=== PATIENT | female | born 1980 | race Caucasian/White ===

== ENCOUNTER 2017-09-07 14:09 | Emergency (ER) | payer MEDICAID ==
[~2017-09-07] VITALS: Ht 154.9 cm; Wt 66.0 kg
[~2017-09-07 14:09] MED LIST: AMPH12.52 PO; CLIN-27 PO; CLIN150C2 PO; CLON-528 PO; HYDR1TAB PO; ZOL50T PO
[2017-09-07 16:00] LABS: URINE HCG NEGATIVE (NEG)
[2017-09-07] MEDS ORDERED: ketorolac tromethamine 15mg/ml inj. IM ONE (16:15)
[2017-09-07] MEDS ORDERED: acetaminophen 325mg tablet PO ONE (16:15)
[2017-09-07] MEDS ORDERED: cyclobenzaprine 10mg tablet PO ONE (16:15)
[2017-09-07] MEDS ORDERED: IBUP-1986 PO (16:25)
[2017-09-07] MEDS ORDERED: LIDO700A32 TOP (16:25)
[2017-09-07] MEDS ORDERED: CYCL-1 PO (16:25)
[2017-09-07] MEDS ORDERED: HYDROcodone/acetaminophen 5mg/325mg tablet PO ONE (16:40)
[2017-09-07 17:59] VITALS: BP 107/68
== END 2017-09-07 18:02 | disposition home or self-care (01) ==
LOC: ER 14:10
DX: M43.6 Torticollis (principal); J45.909 Unspecified asthma, uncomplicated; F17.200 Nicotine dependence, unspecified, uncomplicated; F15.90 Other stimulant use, unspecified, uncomplicated; Z98.890 Other specified postprocedural states; Z98.51 Tubal ligation status; Z60.2 Problems related to living alone; Z59.0 Homelessness; Z88.0 Allergy status to penicillin; Z79.2 Long term (current) use of antibiotics; Z79.899 Other long term (current) drug therapy; Z56.0 Unemployment, unspecified
CPT/HCPCS: 70360; 81025; 96372; 99285; J1885; 99284

== ENCOUNTER 2022-09-05 18:54 | Emergency (ER) | payer MEDICAID ==
[~2022-09-05] VITALS: Ht 156.2 cm; Wt 90.9 kg
[~2022-09-05 18:54] MED LIST changes: +CYCL-1 PO; +IBUP-1986 PO; +LIDO700A32 TOP; +SERT-153 PO; -ZOL50T PO
[2022-09-05 19:18] VITALS: BP 124/89
[2022-09-05 19:43] LABS: URINE HCG NEGATIVE (NEG)
[2022-09-05 20:01] LABS: CLARITY,URINE SLIGHTLY CLOUDY (Clear); COLOR,URINE YELLOW (Yellow); GLUCOSE, URINE NEGATIVE (Neg); KETONES,URINE NEGATIVE (Neg); LEUKOCYTE ESTERASE ,URINE NEGATIVE (Neg); NITRITES, URINE NEGATIVE (Neg); OCCULT BLOOD,URINE NEGATIVE (Neg); PROTEIN,URINE TRACE mg/dl (Neg)
[2022-09-05 20:04] LABS: UA COLLECTION TYPE CLN CATCH MIDSTREAM
[2022-09-05 20:34] LABS: BACTERIA,URINE FEW /HPF (Neg); MUCUS STRANDS MANY /LPF (Neg); RBC,URINE 0-2 /HPF (0-2); SQUAMOUS EPITHELIAL CELL,UR FEW /LPF (FEW); WBC,URINE 30-50 /HPF (0-4)
[2022-09-05 20:35] LABS: WBC CLUMPS,URINE FEW /HPF (NEGATIVE)
[2022-09-05] MEDS ORDERED: phenazopyridine 100mg tablet PO ONE (21:10)
== END 2022-09-05 22:16 | disposition home or self-care (01) ==
LOC: ER 18:54
DX: R30.0 Dysuria (principal); R35.0 Frequency of micturition; J45.909 Unspecified asthma, uncomplicated; F41.9 Anxiety disorder, unspecified; F31.9 Bipolar disorder, unspecified; F15.90 Other stimulant use, unspecified, uncomplicated; Z98.51 Tubal ligation status; Z59.00 Homelessness unspecified; Z56.0 Unemployment, unspecified; Z60.2 Problems related to living alone; Z98.890 Other specified postprocedural states; Z88.0 Allergy status to penicillin; Z88.8 Allergy status to other drugs, medicaments and biological substances; Z79.899 Other long term (current) drug therapy
CPT/HCPCS: 36415; 81001; 81025; 87077; 87088; 87186; 87491; 99283

== ENCOUNTER 2022-10-26 09:51 | Emergency (ER) | payer MEDICAID ==
[~2022-10-26] VITALS: Ht 157.5 cm; Wt 94.0 kg
[2022-10-26 10:01] VITALS: BP 129/95; PULSE 66; RESP 16; TEMP 97.9; O2SAT 100
[2022-10-26 10:55] LABS: BILIRUBIN,URINE NEGATIVE (Neg); CLARITY,URINE SLIGHTLY CLOUDY (Clear); COLOR,URINE YELLOW (Yellow); GLUCOSE, URINE NEGATIVE (Neg); KETONES,URINE NEGATIVE (Neg); LEUKOCYTE ESTERASE ,URINE NEGATIVE (Neg); NITRITES, URINE NEGATIVE (Neg); OCCULT BLOOD,URINE NEGATIVE (Neg); PH,URINE 5.5 (4.8-8.0); PROTEIN,URINE NEGATIVE (Neg); UROBILINOGEN,URINE 0.2 E.U/dL (0.2-1.0)
[2022-10-26 10:56] LABS: URINE HCG NEGATIVE (NEG)
[2022-10-26 10:57] LABS: UA COLLECTION TYPE VOIDED
[2022-10-26 11:15] LABS: MUCUS STRANDS FEW /LPF (Neg); SQUAMOUS EPITHELIAL CELL,UR FEW /LPF (FEW)
[2022-10-26 11:16] LABS: BACTERIA,URINE FEW /HPF (Neg); RBC,URINE 0-2 /HPF (0-2); WBC,URINE 0-4 /HPF (0-4)
== END 2022-10-26 14:20 | disposition home or self-care (01) ==
LOC: ER 09:51
DX: A53.9 Syphilis, unspecified (principal); J45.909 Unspecified asthma, uncomplicated; F31.9 Bipolar disorder, unspecified; F15.90 Other stimulant use, unspecified, uncomplicated; Z88.0 Allergy status to penicillin; Z88.8 Allergy status to other drugs, medicaments and biological substances; Z79.2 Long term (current) use of antibiotics; Z79.1 Long term (current) use of non-steroidal anti-inflammatories (NSAID); Z79.899 Other long term (current) drug therapy; Z98.890 Other specified postprocedural states; Z98.51 Tubal ligation status
CPT/HCPCS: 36415; 81001; 81025; 86592; 99283

== ENCOUNTER 2023-01-13 08:01 | Emergency (ER) | payer MEDICAID ==
[~2023-01-13] VITALS: Ht 154.9 cm; Wt 98.5 kg
[2023-01-13 08:34] LABS: URINE HCG NEGATIVE (NEG)
[2023-01-13 08:35] LABS: BILIRUBIN,URINE NEGATIVE (Neg); CLARITY,URINE CLOUDY (Clear); COLOR,URINE AMBER (Yellow); GLUCOSE, URINE NEGATIVE (Neg); KETONES,URINE NEGATIVE (Neg); LEUKOCYTE ESTERASE ,URINE NEGATIVE (Neg); NITRITES, URINE NEGATIVE (Neg); OCCULT BLOOD,URINE LARGE (Neg); PROTEIN,URINE TRACE mg/dl (Neg); UROBILINOGEN,URINE 0.2 E.U/dL (0.2-1.0)
[2023-01-13 08:40] LABS: UA COLLECTION TYPE CLN CATCH MIDSTREAM
[2023-01-13 08:41] LABS: RBC,URINE TNTC /HPF (0-2); SQUAMOUS EPITHELIAL CELL,UR MODERATE /LPF (FEW)
[2023-01-13 08:42] LABS: TRANSITIONAL EPI CELLS,URINE FEW /HPF
[2023-01-13 08:43] LABS: BACTERIA,URINE FEW /HPF (Neg); WBC,URINE 0-4 /HPF (0-4)
[2023-01-13] MEDS ORDERED: ondansetron 4mg rapidly disintigrating tab PO ONE (09:30)
[2023-01-13 10:19] LABS: BASOPHILS % (AUTO) 0.4 % (0-1); EOSINOPHILS # (AUTO) 0.2 X10'3 (0-0.9); EOSINOPHILS % (AUTO) 2.3 % (0-6); HEMATOCRIT 40.2 % (35.0-45.0); HEMOGLOBIN 13.5 g/dl (12.0-16.0); LYMPHOCYTES # (AUTO) 2.1 X10'3 (1.1-4.8); LYMPHOCYTES % (AUTO) 23.3 % (21-51); MEAN CORPUSCULAR HEMOGLOBIN 31.2 PG (27.0-31.0); MEAN CORPUSCULAR HGB CONC 33.5 g/dL (33.0-36.5); MEAN CORPUSCULAR VOLUME 93.3 FL (78-98); MONOCYTES # (AUTO) 0.5 X10'3 (0-0.9); MONOCYTES % (AUTO) 5.8 % (2-12); NEUTROPHILS # (AUTO) 6.2 X10'3 (1.8-7.7); NEUTROPHILS % (AUTO) 68.2 % (42-75); PLATELET COUNT 240 X10'3 (140-440); RED BLOOD COUNT 4.31 X10'6 (4.20-5.60); RED CELL DISTRIBUTION WIDTH 12.8 % (11.5-14.5); WHITE BLOOD COUNT 9.1 X10'3 (4.5-11.0)
[2023-01-13 10:38] LABS: ALANINE AMINOTRANSFERASE 20 U/L (12-78); ALBUMIN 3.2 G/DL (3.4-5.0); ALBUMIN/GLOBULIN RATIO 0.8 (1.1-1.5); ALKALINE PHOSPHATASE 71 IU/L (46-116); ANION GAP 10 (8-16); ASPARTATE AMINO TRANSFERASE 23 U/L (10-37); BILIRUBIN,TOTAL 0.4 MG/DL (0.1-1.0); BLOOD UREA NITROGEN 9 MG/DL (7-18); BUN/CREATININE RATIO 10.7 (10.0-20.0); CALCIUM 8.6 MG/DL (8.5-10.1); CHLORIDE 105 MMOL/L (99-107); CREATININE 0.84 MG/DL (0.40-0.90); GLUCOSE 113 MG/DL (70-104); LIPASE 36 U/L (16-77); POTASSIUM 3.5 MMOL/L (3.5-5.1); SODIUM 138 MMOL/L (135-145); THYROID STIMULATING HORMONE 2.38 ulU/ml (0.34-4.50); TOTAL CARBON DIOXIDE 23.2 MMOL/L (24-32); eCRCL 67 ML/MIN; eGFR 75 ML/MIN
[2023-01-13] MEDS ORDERED: ketorolac trometh. 30mg/ml inj. IM ONE (11:35)
[2023-01-13] MEDS ORDERED: IBUP-1984 PO (13:06)
[2023-01-13 13:24] VITALS: BP 107/65; PULSE 80; RESP 18; TEMP 98.3; O2SAT 97
== END 2023-01-13 13:31 | disposition home or self-care (01) ==
LOC: ER 08:01
DX: N92.0 Excessive and frequent menstruation with regular cycle (principal); R10.30 Lower abdominal pain, unspecified; J45.909 Unspecified asthma, uncomplicated; F15.90 Other stimulant use, unspecified, uncomplicated; Z56.0 Unemployment, unspecified; Z59.00 Homelessness unspecified; Z98.891 History of uterine scar from previous surgery; Z98.51 Tubal ligation status; Z88.0 Allergy status to penicillin; Z88.8 Allergy status to other drugs, medicaments and biological substances; Z79.2 Long term (current) use of antibiotics; Z79.899 Other long term (current) drug therapy
CPT/HCPCS: 36415; 76830; 76856; 80053; 81001; 81025; 83690; 84443; 85025; 93976; 96372; 99285; J1885

== ENCOUNTER 2023-02-19 21:03 | Emergency (ER) | payer MEDICAID ==
[~2023-02-19] VITALS: Ht 156.2 cm; Wt 99.0 kg
[2023-02-19 21:11] VITALS: RESP 18
[2023-02-19 21:53] LABS: BASOPHILS # (AUTO) 0.1 X10'3 (0-0.2); BASOPHILS % (AUTO) 0.6 % (0-1); EOSINOPHILS # (AUTO) 0.1 X10'3 (0-0.9); EOSINOPHILS % (AUTO) 0.7 % (0-6); HEMOGLOBIN 13.9 g/dl (12.0-16.0); LYMPHOCYTES # (AUTO) 1.6 X10'3 (1.1-4.8); LYMPHOCYTES % (AUTO) 13.2 % (21-51); MEAN CORPUSCULAR HEMOGLOBIN 31.1 PG (27.0-31.0); MEAN CORPUSCULAR VOLUME 91.5 FL (78-98); MEAN PLATELET VOLUME 8.8 FL (7.4-10.4); MONOCYTES # (AUTO) 0.6 X10'3 (0-0.9); MONOCYTES % (AUTO) 5.2 % (2-12); NEUTROPHILS # (AUTO) 9.9 X10'3 (1.8-7.7); NEUTROPHILS % (AUTO) 80.3 % (42-75); PLATELET COUNT 232 X10'3 (140-440); RED BLOOD COUNT 4.48 X10'6 (4.20-5.60); WHITE BLOOD COUNT 12.3 X10'3 (4.5-11.0)
[2023-02-19 21:57] LABS: ALANINE AMINOTRANSFERASE 24 U/L (12-78); ALBUMIN 3.3 G/DL (3.4-5.0); ALBUMIN/GLOBULIN RATIO 0.8 (1.1-1.5); ALKALINE PHOSPHATASE 78 IU/L (46-116); ANION GAP 11 (8-16); ASPARTATE AMINO TRANSFERASE 20 U/L (10-37); BILIRUBIN,TOTAL 0.4 MG/DL (0.1-1.0); BLOOD UREA NITROGEN 12 MG/DL (7-18); BUN/CREATININE RATIO 13.2 (10.0-20.0); CALCIUM 8.4 MG/DL (8.5-10.1); CHLORIDE 105 MMOL/L (99-107); CREATININE 0.91 MG/DL (0.40-0.90); GLUCOSE 105 MG/DL (70-104); LIPASE 32 U/L (16-77); POTASSIUM 3.8 MMOL/L (3.5-5.1); SODIUM 139 MMOL/L (135-145); TOTAL CARBON DIOXIDE 23.1 MMOL/L (24-32); TOTAL PROTEIN 7.2 G/DL (6.4-8.2); eCRCL 63 ML/MIN; eGFR 68 ML/MIN
[2023-02-19 22:22] LABS: BILIRUBIN,URINE NEGATIVE (Neg); CLARITY,URINE SLIGHTLY CLOUDY (Clear); COLOR,URINE YELLOW (Yellow); GLUCOSE, URINE NEGATIVE (Neg); KETONES,URINE NEGATIVE (Neg); LEUKOCYTE ESTERASE ,URINE NEGATIVE (Neg); NITRITES, URINE NEGATIVE (Neg); OCCULT BLOOD,URINE TRACE-INTACT (Neg); PROTEIN,URINE NEGATIVE (Neg); UROBILINOGEN,URINE 0.2 E.U/dL (0.2-1.0)
[2023-02-19 22:28] LABS: URINE HCG NEGATIVE (NEG)
[2023-02-19 22:29] LABS: UA COLLECTION TYPE CLN CATCH MIDSTREAM
[2023-02-19 22:30] LABS: HYALINE CASTS 0-3 /LPF (NEGATIVE); MUCUS STRANDS FEW /LPF (Neg); SQUAMOUS EPITHELIAL CELL,UR MANY /LPF (FEW)
[2023-02-19 22:31] LABS: BACTERIA,URINE 2+ /HPF (Neg)
[2023-02-20] MEDS ORDERED: ondansetron/PF 4mg/2ml inj IV ONE (00:15)
[2023-02-20] MEDS ORDERED: normal saline 1000ML IV soln IVB ONE (00:15)
[2023-02-20] MEDS ORDERED: famotidine/PF 10 mg/ml inj IV ONE (00:15)
[2023-02-20] MEDS ORDERED: ONDA4TAB12 PO (00:51)
[2023-02-20 01:06] VITALS: BP 139/83; PULSE 91; O2SAT 100
== END 2023-02-20 01:08 | disposition home or self-care (01) ==
LOC: ER 21:03
DX: R10.13 Epigastric pain (principal)
CPT/HCPCS: 36415; 80053; 81001; 81025; 83690; 85025; 96374; 96375; 99284; J2405; J3490; J7030; 96361

== ENCOUNTER 2023-09-05 11:17 | Emergency (ER) | payer MEDICAID ==
[~2023-09-05] VITALS: Ht 154.9 cm; Wt 85.5 kg
[~2023-09-05 11:17] MED LIST changes: -CLON-528 PO; +CLON-850 PO; +ONDA4TAB12 PO
[2023-09-05] MEDS ORDERED: SKIN30CL4 TOP (11:42)
[2023-09-05] MEDS ORDERED: PRED20TA PO (11:43)
[2023-09-05] MEDS: dexamethasone sod phosphate 10mg/ml inj IM STA (11:53)
[2023-09-05 11:56] VITALS: BP 151/97; PULSE 89; RESP 16; TEMP 98.4; O2SAT 98
== END 2023-09-05 11:58 | disposition home or self-care (01) ==
LOC: ER 11:17
DX: L23.7 Allergic contact dermatitis due to plants, except food (principal); J45.909 Unspecified asthma, uncomplicated; F41.9 Anxiety disorder, unspecified; F32.A Depression, unspecified; Z98.890 Other specified postprocedural states; Z98.51 Tubal ligation status; F15.90 Other stimulant use, unspecified, uncomplicated; Z60.2 Problems related to living alone; Z59.00 Homelessness unspecified; Z56.0 Unemployment, unspecified; Z88.0 Allergy status to penicillin; Z88.8 Allergy status to other drugs, medicaments and biological substances; Z79.899 Other long term (current) drug therapy; Z79.2 Long term (current) use of antibiotics; Z79.1 Long term (current) use of non-steroidal anti-inflammatories (NSAID)
CPT/HCPCS: 96372; 99283; J1100

== ENCOUNTER 2023-12-13 10:54 | Emergency (ER) | payer MEDICAID ==
[~2023-12-13] VITALS: Ht 156.2 cm; Wt 79.5 kg
[~2023-12-13 10:54] MED LIST changes: +ONDA-243 PO; -ONDA4TAB12 PO; +SKIN30CL4 TOP
[2023-12-13] MEDS: LIDOcaine 1% W/epiNEPHrine 1:100,000 20ml vial SQ ONE (11:10)
[2023-12-13] MEDS: TETanus/Pertussis (Acell)/Diphther VAC/PF (Tdap-Adult) 0.5ml syringe IMVAC ONE (13:40)
[2023-12-13] MEDS ORDERED: DOXY150T8 PO (14:16)
[2023-12-13 14:27] VITALS: BP 121/80; PULSE 77; RESP 16; TEMP 97.9; O2SAT 100
== END 2023-12-13 14:29 | disposition home or self-care (01) ==
LOC: ER 10:55
DX: S91.312A Laceration without foreign body, left foot, initial encounter (principal); J45.909 Unspecified asthma, uncomplicated; F41.9 Anxiety disorder, unspecified; F32.A Depression, unspecified; Z88.0 Allergy status to penicillin; Z88.8 Allergy status to other drugs, medicaments and biological substances; Z91.040 Latex allergy status; Z79.899 Other long term (current) drug therapy; Z98.51 Tubal ligation status; Z90.721 Acquired absence of ovaries, unilateral; W25.XXXA Contact with sharp glass, initial encounter; Y93.89 Activity, other specified; Y92.89 Other specified places as the place of occurrence of the external cause; Y99.8 Other external cause status
CPT/HCPCS: 12001; 90471; 90715; 99283; J7030

== ENCOUNTER 2024-01-10 08:22 | Emergency (ER) | payer MEDICAID ==
[~2024-01-10] VITALS: Ht 154.9 cm; Wt 79.5 kg
[2024-01-10 09:09] LABS: BASOPHILS % (AUTO) 0.2 % (0-1); EOSINOPHILS # (AUTO) 0.1 X10'3 (0-0.9); EOSINOPHILS % (AUTO) 0.9 % (0-6); HEMOGLOBIN 15.1 g/dl (12.0-16.0); LYMPHOCYTES # (AUTO) 1.2 X10'3 (1.1-4.8); LYMPHOCYTES % (AUTO) 12.7 % (21-51); MEAN CORPUSCULAR HEMOGLOBIN 31.5 PG (27.0-31.0); MEAN CORPUSCULAR HGB CONC 34.2 g/dL (33.0-36.5); MEAN CORPUSCULAR VOLUME 92.2 FL (78-98); MEAN PLATELET VOLUME 8.2 FL (7.4-10.4); MONOCYTES # (AUTO) 0.6 X10'3 (0-0.9); MONOCYTES % (AUTO) 6.4 % (2-12); NEUTROPHILS # (AUTO) 7.7 X10'3 (1.8-7.7); NEUTROPHILS % (AUTO) 79.8 % (42-75); PLATELET COUNT 236 X10'3 (140-440); RED BLOOD COUNT 4.78 X10'6 (4.20-5.60); RED CELL DISTRIBUTION WIDTH 12.8 % (11.5-14.5); WHITE BLOOD COUNT 9.7 X10'3 (4.5-11.0)
[2024-01-10 09:18] LABS: ALANINE AMINOTRANSFERASE 24 U/L (12-78); ALBUMIN 3.6 G/DL (3.4-5.0); ALBUMIN/GLOBULIN RATIO 1.1 (1.1-1.5); ALKALINE PHOSPHATASE 105 IU/L (46-116); ANION GAP 5 (8-16); ASPARTATE AMINO TRANSFERASE 18 U/L (10-37); BILIRUBIN,TOTAL 0.6 MG/DL (0.1-1.0); BLOOD UREA NITROGEN 10 MG/DL (7-18); BUN/CREATININE RATIO 9.3 (10.0-20.0); CALCIUM 8.9 MG/DL (8.5-10.1); CHLORIDE 102 MMOL/L (99-107); CREATININE 1.07 MG/DL (0.40-0.90); GLUCOSE 113 MG/DL (70-104); LIPASE 41 U/L (16-77); POTASSIUM 3.6 MMOL/L (3.5-5.1); SODIUM 136 MMOL/L (135-145); TOTAL CARBON DIOXIDE 29.5 MMOL/L (24-32); eCRCL 52 ML/MIN; eGFR 56 ML/MIN
[2024-01-10] MEDS: normal saline 1000ml 1,000 ML IV ONE (09:24)
[2024-01-10] MEDS: ondansetron/PF 4mg/2ml inj IV ONE (09:25)
[2024-01-10] MEDS: morphine 4 MG/ML inj SYRINge IV ONE (09:25)
[2024-01-10] MEDS ORDERED: DICY-19 PO (10:36)
[2024-01-10] MEDS ORDERED: ONDA-243 PO (10:36)
[2024-01-10 10:56] VITALS: BP 140/97; PULSE 82; RESP 18; TEMP 98.1; O2SAT 99
== END 2024-01-10 11:00 | disposition home or self-care (01) ==
LOC: ER 08:23
DX: K52.9 Noninfective gastroenteritis and colitis, unspecified (principal); R10.12 Left upper quadrant pain; J45.909 Unspecified asthma, uncomplicated; F31.9 Bipolar disorder, unspecified; F15.90 Other stimulant use, unspecified, uncomplicated; Z88.0 Allergy status to penicillin; Z91.040 Latex allergy status; Z79.899 Other long term (current) drug therapy; Z98.890 Other specified postprocedural states; Z98.51 Tubal ligation status; Z90.721 Acquired absence of ovaries, unilateral
CPT/HCPCS: 36415; 80053; 83690; 85025; 96374; 96375; 99284; J2270; J2405; J7030

== ENCOUNTER 2024-04-16 01:56 | Emergency (ER) | payer MEDICAID ==
[~2024-04-16] VITALS: Ht 154.9 cm; Wt 76.1 kg
[~2024-04-16 01:56] MED LIST changes: +DICY-19 PO
[2024-04-16] MEDS ORDERED: ONDA-243 PO (03:47)
[2024-04-16] MEDS ORDERED: ALBU8HFA INH (03:47)
[2024-04-16] MEDS: diphenhydrAMINE 25 MG/10 ML UD oral solution PO ONE (03:51)
[2024-04-16] MEDS: ondansetron 4mg rapidly disintigrating tab PO ONE (03:52)
[2024-04-16] MEDS: dexamethasone sod phosphate 10mg/ml inj PO STA (03:52)
[2024-04-16] MEDS: HYDROcodone/acetaminophen 10/325mg tab PO ONE (03:52)
[2024-04-16] MEDS: ipratropium/albuterol 3ml nebule NEB ONE (04:06)
[2024-04-16 04:07] VITALS: PULSE 96; RESP 20; O2SAT 98
[2024-04-16 04:14] VITALS: PULSE 96; RESP 18; O2SAT 99
[2024-04-16 04:24] VITALS: BP 110/72; PULSE 92; RESP 18; TEMP 98.2; O2SAT 99
== END 2024-04-16 04:29 | disposition home or self-care (01) ==
LOC: ER 01:57
DX: J11.1 Influenza due to unidentified influenza virus with other respiratory manifestations (principal); J45.909 Unspecified asthma, uncomplicated; F32.A Depression, unspecified; F41.9 Anxiety disorder, unspecified; F15.90 Other stimulant use, unspecified, uncomplicated; Z88.0 Allergy status to penicillin; Z90.721 Acquired absence of ovaries, unilateral; Z98.51 Tubal ligation status; Z59.00 Homelessness unspecified; Z91.040 Latex allergy status; Z79.899 Other long term (current) drug therapy; Z56.0 Unemployment, unspecified
CPT/HCPCS: 94640; 99284; J1100; Q0163

== ENCOUNTER 2024-07-03 11:20 | Emergency (ER) | payer MEDICAID ==
[~2024-07-03] VITALS: Ht 154.9 cm; Wt 71.2 kg
[2024-07-03 11:25] VITALS: BP 140/89; PULSE 93; RESP 18; TEMP 97.5; O2SAT 100
--- NOTE | 2024-07-03 11:27 | Physician Documentation ---
History of Present Illness ~ Chief Complaint: Rash Stated Complaint: POISON OAK Time Seen by MD: 11:32 Primary Medical Doctor: michelle GIRALDO 43-year-old female patient presents to the ED today with a complaint of an itchy rash which developed overnight. She states that her right eye tissue has gotten swollen and more itchy. Also complains of rash on the left side of her neck. States that she has a history of having eye swelling secondary to poison oak which is what she suspects is going on currently.. Denies any shortness of breath or feeling in his are throat is closing Day of Onset: Jul 03, 2024 Medication Reconciliation Allergies: Coded Allergies: Penicillins (Verified Allergy, Severe, THROAT SWELLING, 07/03/24) lurasidone HCl (Verified Allergy, Intermediate, 07/03/24) latex (Unverified Allergy, Unknown, 07/03/24) Scheduled Amphet Asp/Amphet/D-Amphet* (Adderal*), 40 MG PO DAILY, (Reported) Clindamycin (Cleocin ), 300 MG PO Q8H Clindamycin Hcl (Clindamycin Hcl), 150 MG PO QID Clonazepam (Klonopin), 0.5 MG PO BID, (Reported) Dicyclomine HCl (Dicyclomine HCl), 1 CAP PO Q8H Ibuprofen (Ibuprofen), 1 TAB PO Q8H Lidocaine (Lidoderm), 1 PATCH TOP BID Sertraline HCl (Sertraline HCl), 100 MG PO DAILY, (Reported) Skin Cleanser Combination No.8 (Zanfel), 1 APPLIC TOP Q8H Scheduled PRN Cyclobenzaprine* (Cyclobenzaprine*), 1 TABLET PO Q8H PRN for muscle spasms Hydrocodone/Acetaminophen (Vicodin 5-500 Tablet), 1 TAB PO Q6H PRN ONDANSETRON ODT 4mg tablet (Ondansetron Odt), 1 TAB PO Q6H PRN PRN for nausea/vomiting ONDANSETRON ODT 4mg tablet (Ondansetron Odt), 1 TAB PO Q6H PRN PRN for nausea/vomiting ONDANSETRON ODT 4mg tablet (Ondansetron Odt), 1 TAB PO Q6H PRN PRN for nausea/vomiting Past Medical History Alcohol Use: Sober Drug Use: methamphetamine Review of Systems All Other Systems at this time: Reviewed and Negative ROS As stated above in the HPI, otherwise all systems are reviewed and negative. Physical Exam Physical Exam General: Alert, no apparent distress. Respiratory: Lungs clear, no respiratory distress. Neurologic: Oriented x4. Psychiatric: Normal mood and affect. Skin: Rash on left side neck. Right eye swelling Progress Results/Orders Results/Orders Completed Orders - KHLOE SNYDER NP Triamcinolone Acet 40mg/Ml Inj (Kenalog- (07/03/24 11:25) Medications Received in ER Medications (Trade) Dose Ordered Sig/Monica Route PRN Reason Start Time Stop Time Status Last Admin Dose Admin (Kenalog-40 inj) 60 mg ONCE ONCE IM 07/03/24 11:25 07/03/24 11:26 DC 07/03/24 11:32 60 MG Vital Signs 07/03/24 11:25 Temp 97.5 Pulse 93 Resp 18 B/P (MAP) 140/89 Pulse Ox 100 Medical Decision Making Findings treating for contact dermatitis secondary to poison oak exposure. Based on patient's history this is a familiar reaction to her advise her to use hydrocortisone cream at home and take Benadryl for itching. Differential Dx:Considerations: Include: Abscess, Atopic dermitis, Cellulitis, Contact dermatitis, Drug reaction, Erysipelas, Erythema multiforme, Erythema nodosum, Henoch-Schonlein purpura, Herpes zoster, Herpes simplex, Impetigo, Menigococcemia, Molluscum contagiosum, Pityriasis rosea, Pediculosis, RMSF, Roseola infantum, Scabies, Scarlet fever, Tinea, Varicella, Viral exanthem, Urticaria, Other Departure Disposition: HOME / SELF CARE / HOMELESS Impression: Primary Impression: Urticaria Additional Impression: Poison oak dermatitis Condition: Improved Discharge Instructions: Pruritus Referrals: NO PRIMARY CARE PROVIDER (PCP) Signature Scribe Signature: r Attestation: The note accurately reflects work and decisions made by me.Khloe Snyder - JAIME 07/03/24 16:20 KHLOE SNYDER NP Jul 03, 2024 11:27
[2024-07-03] MEDS: triamcinolone acetonide 40mg/ml inj IM ONE (11:32)
== END 2024-07-03 11:41 | disposition home or self-care (01) ==
LOC: ER 11:21
DX: L23.7 Allergic contact dermatitis due to plants, except food (principal); Z88.0 Allergy status to penicillin
CPT/HCPCS: 96372; 99283; J3301

== ENCOUNTER 2024-11-06 15:42 | Emergency (ER) | payer MEDICAID ==
[~2024-11-06] VITALS: Ht 154.9 cm; Wt 75.5 kg
[~2024-11-06 15:42] MED LIST changes: +LIDO-52 TOP; -LIDO700A32 TOP
--- NOTE | 2024-11-06 15:58 | Physician Documentation ---
History of Present Illness ~ Chief Complaint: Bite-animal Stated Complaint: DOG BITE Time Seen by MD: 16:45 Primary Medical Doctor: michelle GIRALDO This is a 44-year-old female who presents with a dog bite to the right forearm, patient reports that she was at its a person's house and when they open the door their dogs rushed out and bit her. Patient reports she believes she had a tetanus booster last year. Patient reports no other acute symptoms or concerns. Tetanus within 5 years?: Yes (12/13/2023) Medication Reconciliation Allergies: Coded Allergies: Penicillins (Verified Allergy, Severe, THROAT SWELLING, 07/03/24) lurasidone HCl (Verified Allergy, Intermediate, 07/03/24) latex (Unverified Allergy, Unknown, 07/03/24) Scheduled Amphet Asp/Amphet/D-Amphet* (Adderal*), 40 MG PO DAILY, (Reported) Clindamycin (Cleocin ), 300 MG PO Q8H Clindamycin Hcl (Clindamycin Hcl), 150 MG PO QID Clonazepam (Klonopin), 0.5 MG PO BID, (Reported) Dicyclomine HCl (Dicyclomine HCl), 1 CAP PO Q8H Ibuprofen (Ibuprofen), 1 TAB PO Q8H Lidocaine (Lidoderm), 1 PATCH TOP BID Metronidazole* (Flagyl*), 1 TAB PO Q8H Sertraline HCl (Sertraline HCl), 100 MG PO DAILY, (Reported) Skin Cleanser Combination No.8 (Zanfel), 1 APPLIC TOP Q8H Sulfamethoxazole/Trimethoprim (Bactrim Ds Tablet), 1 TAB PO Q12H Scheduled PRN Cyclobenzaprine* (Cyclobenzaprine*), 1 TABLET PO Q8H PRN for muscle spasms Hydrocodone/Acetaminophen (Vicodin 5-500 Tablet), 1 TAB PO Q6H PRN ONDANSETRON ODT 4mg tablet (Ondansetron Odt), 1 TAB PO Q6H PRN PRN for nausea/vomiting ONDANSETRON ODT 4mg tablet (Ondansetron Odt), 1 TAB PO Q6H PRN PRN for nausea/vomiting ONDANSETRON ODT 4mg tablet (Ondansetron Odt), 1 TAB PO Q6H PRN PRN for nausea/vomiting Past Medical History Past Medical History: Asthma, Anxiety, Bipolar, Depression Past Surgical History: , tubal ligation Other Past Surgical History: Right Oophorectomy Alcohol Use: Sober Drug Use: methamphetamine Lives with: Alone Lives In: Homeless Occupation: unemployed Review of Systems ROS As stated above in the HPI, otherwise all systems are reviewed and negative. Physical Exam Vital Signs: Temperature: 97.7, Source: Temporal, Heart Rate: 94, Respiratory Rate: 18, BP: 139/89, Pulse Oximetry: 99, Weight: 75.480 Oxygen Flow Rate: 0 Physical Exam VITALS: Reviewed and as above. GENERAL: Alert, nontoxic appearing, no apparent distress. RESPIRATORY: No increased work of breathing, no respiratory distress, speaking in full clear sentences CV: Brisk capillary refill to right hand MUSCULOSKELETAL: Range of motion intact in wrist and fingers of right hand SKIN: Approximately 2 cm laceration to the posterior surface of right forearm, single puncture wound in line with the laceration approximately 1 cm from laceration, single puncture wound to lateral surface of right forearm NEURO: Sensation intact to right hand Procedures Laceration/Wound Repair Laceration/Wound Repair : Location: Right forearm Length (cm): 2 Anesthesia: Lidocaine w/ Epi Volume Anesthetic (mls): 8 Prep: irrigated by nurse Margins: revised, other (Loosely approximated) Foreign Body: not identified Repaired: skin Wound Repaired With: sutures Suture Size/Type: 4-0 Number of Superficial Sutures: 2 Dressing Applied: simple, non-adherent Splint Applied?: No Sling Applied?: No Tolerated Procedure Well?: yes, no complications Procedure Note Wound was successfully loosely reapproximated Progress Results/Orders Results/Orders Orders - YAMILET GREEN Laceration/I&D Tray Set Up (11/06/24 16:26) Wound Care Orders (11/06/24 16:26) Forearm,Incl.One Joint (11/06/24 17:28) Completed Orders - YAMILET GREEN Lidocaine 1% W/Epi 1:100,000 (Xylocaine (11/06/24 16:30) Ketorolac Trometh 15mg/Ml Vial (Toradol (11/06/24 17:10) Forearm,Incl.One Joint (11/06/24 17:28) Metronidazole Tablet (Flagyl Tablet) (11/06/24 18:05) Sulfamethox/Trimetho. Ds Tab (Septra Ds (11/06/24 18:05) Vital Signs 11/06/24 11/06/24 11/06/24 15:48 17:23 18:56 Temp 97.7 98.6 Pulse 94 90 Resp 18 16 16 B/P (MAP) 139/89 132/86 Pulse Ox 99 99 O2 Flow Rate 0 EKG/XRAY/CT/US/VASC/MRI Bone/Soft Tissue X-Ray (Ext.) : Additional Comment Exam: FOREARM,INCL.ONE JOINT CLINICAL INDICATION: Dog Bite TECHNIQUE: 2 radiographic views of the right forearm were obtained. Comparison: None FINDINGS/IMPRESSION: There is no evidence of acute fracture or dislocation. The visualized joint space is well maintained. The alignment is anatomical. There is no radiopaque foreign body. There is soft tissue edema with subcutaneous emphysema over the lateral and dorsal proximal to mid forearm Electronically Signed by:KATARINA BALDERAS DO Date & Time: 11/06/241736 Dictated by: KATARINA BALDERAS DO Dictation date and time: 11/06/241736 I have reviewed and agree with the radiology report. I have reviewed and interpreted the imaging as: No radiopaque foreign body, no fracture, no dislocation Medical Decision Making Findings This 44-year-old female presented with a dog bite to her right forearm, physical exam demonstrated several small lacerations without evidence of deep tissue and involvement or retained foreign body, the largest laceration was amenable to loose closure. X-ray of the arm did not demonstrate evidence of retained foreign body, fracture, or dislocation. The arm was neurovascularly intact. Remainder of physical exam was without findings of other injuries and otherwise benign. Patient was able to produce a copy of the rabies vaccinations certificate for the dog that bit her therefore rabies vaccine series not indicated, patient reports up-to-date on Tdap. Patient medicated for pain and received 1st dose of antibiotics. Patient is appropriate for outpatient follow up and discharged with home care instructions, follow up instructions, and return to care precautions which she verbalized understanding of. Differential Dx:Considerations: Include: Abrasion, Allergic reaction, Anaphylaxis, Cellulitis, Contusion, Fracture, Hematoma, Laceration, Neurovascular injury, Punture wound, Retained foreign body Departure Time of Disposition: 18:43 Disposition: 01 HOME / SELF CARE / HOMELESS Impression: Primary Impression: Dog bite Qualified Codes: W54.0XXA - Bitten by dog, initial encounter Condition: Improved Discharge Instructions: Animal Bite, Adult Additional Instructions: Keep the area clean dry and covered, change the dressing at least once a day or whenever it becomes soiled. Take the antibiotics as prescribed. Please return to the emergency department or your choice of other medical provider in 10 days to have the stitches pulled out and the wound rechecked. Please return sooner if you have any concerns of the wound healing poorly. Please follow up with your primary care provider in the next few days. Please return to the emergency department for any new or worsening concerning symptoms including but not limited to worsening pain and swelling to the area, or if you develop a fever over 100.4 that does not lower with ibuprofen or Tylenol. Referrals: NO PRIMARY CARE PROVIDER (PCP) Prescriptions Sulfamethoxazole/Trimethoprim (Bactrim Ds Tablet) 800 Mg-160 Mg Tablet 1 TAB PO Q12H for 7 Days, #14 TAB Prov: YAMILET GREEN 11/06/24 Metronidazole* (Flagyl*) 500 Mg Tablet 1 TAB PO Q8H for 7 Days, #21 TAB Prov: YAMILET GREENP 11/06/24 Education Educated: Patient Educated regarding: diagnosis, treatment, prognosis, need for follow up Signature Scribe Signature: No scribe Attestation: The note accurately reflects work and decisions made by me.JOSE Fitch 11/08/24 14:29 YAMILET GREEN Nov 06, 2024 15:58
[2024-11-06] MEDS: ketorolac trometh 15mg/ml vial 15 MG/ML ML IM ONE (17:23)
[2024-11-06] MEDS: LIDOcaine 1% W/epiNEPHrine 1:100,000 20ml vial IJ ONE (17:29)
--- NOTE | 2024-11-06 17:40 | RADIOLOGY REPORT ---
CLINICAL INDICATION: Dog Bite TECHNIQUE: 2 radiographic views of the right forearm were obtained. Comparison: None FINDINGS/IMPRESSION: There is no evidence of acute fracture or dislocation. The visualized joint space is well maintained. The alignment is anatomical. There is no radiopaque foreign body. There is soft tissue edema with subcutaneous emphysema over the lateral and dorsal proximal to mid forearm
[2024-11-06] MEDS: sulfamethoxazole/trimethoprim DS (800/160mg) tablet PO ONE (18:22)
[2024-11-06] MEDS ORDERED: SULF1TAB49 PO (18:46)
[2024-11-06] MEDS ORDERED: METR-159 PO (18:46)
[2024-11-06 18:56] VITALS: BP 132/86; PULSE 90; RESP 16; TEMP 98.6; O2SAT 99
== END 2024-11-06 18:58 | disposition home or self-care (01) ==
LOC: ER 15:43
DX: S51.811A Laceration without foreign body of right forearm, initial encounter (principal); J45.909 Unspecified asthma, uncomplicated; F31.9 Bipolar disorder, unspecified; F41.9 Anxiety disorder, unspecified; F15.90 Other stimulant use, unspecified, uncomplicated; Z88.0 Allergy status to penicillin; Z91.040 Latex allergy status; Z98.51 Tubal ligation status; Z90.721 Acquired absence of ovaries, unilateral; Z79.899 Other long term (current) drug therapy; Z56.0 Unemployment, unspecified; Z59.00 Homelessness unspecified; Z60.2 Problems related to living alone; W54.0XXA Bitten by dog, initial encounter; Y93.89 Activity, other specified; Y92.89 Other specified places as the place of occurrence of the external cause; Y99.8 Other external cause status
CPT/HCPCS: 12001; 73090; 96372; 99283; J1885; J3490; J7030; A6449

== ENCOUNTER 2024-12-22 04:55 | Emergency (ER) | payer SELFPAY ==
[~2024-12-22] VITALS: Ht 154.9 cm; Wt 72.0 kg
[2024-12-22 04:58] VITALS: TEMP 97.6
[2024-12-22] MEDS ORDERED: ketorolac trometh 15mg/ml vial 15 MG/ML ML IM ONE (07:10)
--- NOTE | 2024-12-22 07:14 | Physician Documentation ---
History of Present Illness ~ Chief Complaint: Back Pain Stated Complaint: BACK PAIN Time Seen by MD: 06:47 Primary Medical Doctor: michelle HPI 44-year-old female history of prior methamphetamine use presenting for 2 days of back pain. She was sitting in a low camping chair of the tipped backwards and she hit her back on a fold up closet. She has been taking Tylenol and ibuprofen with no improvement. No bowel or bladder dysfunction. No perineal numbness. No lower extremity weakness. Negative fevers chills chest pain or shortness of breath Medication Reconciliation Allergies: Coded Allergies: Penicillins (Verified Allergy, Severe, THROAT SWELLING, 07/03/24) lurasidone HCl (Verified Allergy, Intermediate, 07/03/24) latex (Unverified Allergy, Unknown, 07/03/24) Scheduled Amphet Asp/Amphet/D-Amphet* (Adderal*), 40 MG PO DAILY, (Reported) Clindamycin (Cleocin ), 300 MG PO Q8H Clindamycin Hcl (Clindamycin Hcl), 150 MG PO QID Clonazepam (Klonopin), 0.5 MG PO BID, (Reported) Dicyclomine HCl (Dicyclomine HCl), 1 CAP PO Q8H Ibuprofen (Ibuprofen), 1 TAB PO Q8H Lidocaine (Lidoderm), 1 PATCH TOP BID Sertraline HCl (Sertraline HCl), 100 MG PO DAILY, (Reported) Skin Cleanser Combination No.8 (Zanfel), 1 APPLIC TOP Q8H Scheduled PRN Cyclobenzaprine* (Cyclobenzaprine*), 1 TABLET PO Q8H PRN for muscle spasms Hydrocodone/Acetaminophen (Vicodin 5-500 Tablet), 1 TAB PO Q6H PRN ONDANSETRON ODT 4mg tablet (Ondansetron Odt), 1 TAB PO Q6H PRN PRN for nausea/vomiting ONDANSETRON ODT 4mg tablet (Ondansetron Odt), 1 TAB PO Q6H PRN PRN for nausea/vomiting ONDANSETRON ODT 4mg tablet (Ondansetron Odt), 1 TAB PO Q6H PRN PRN for nausea/vomiting Past Medical History Past Medical History: Asthma, Anxiety, Bipolar, Depression Past Surgical History: , tubal ligation Other Past Surgical History: Right Oophorectomy Alcohol Use: Sober Drug Use: methamphetamine Lives with: Alone Lives In: Homeless Occupation: unemployed Review of Systems All Other Systems at this time: Reviewed and Negative Physical Exam Physical Exam Vital Signs: RN Vital Signs have been reviewed: Yes, Temperature: 97.6, Source: Temporal, Heart Rate: 118, Respiratory Rate: 16, BP: 122/73, Pulse Oximetry: 100, Weight: 72.000 Physical Exam Well-appearing resting comfortably sleeping in bed After waking begins squirming and hyperventilating Awake alert oriented moving all extremities normal speech fatigued appearing Respiratory breathing comfortably Abdomen is soft nontender Pelvis nontender to compression stable Bilateral hip knee ankle range of motion without discomfort Back no contusion no deformity no C or T-spine tenderness. Diffusely tender left lumbar muscles. No midline tenderness Progress Results/Orders Results/Orders Orders - ANA MARÍA SAEED MD Ketorolac Trometh 15mg/Ml Vial (Toradol (12/22/24 07:10) Tizanidine Tablet (Zanaflex Tablet) (12/22/24 07:10) Vital Signs 12/22/24 12/22/24 04:58 06:48 Temp 97.6 Pulse 97 118 Resp 15 16 B/P (MAP) 146/62 122/73 (89) Pulse Ox 100 100 Medical Decision Making Additional information obtaine: N/A Findings 44-year-old female presenting for low mechanism fall 2 days prior. No neurologic deficits. No fever. Mild tachycardia likely due to pain. No red flag symptoms. Considered imaging however in his case radiography not indicated for simple low back pain with no significant trauma and benign exam Differential Dx:Considerations: Musculoskeletal pain, Other Differential Diagnosis Spinal cord injury, cauda equina syndrome, musculoskeletal pain other causes of back pain Departure Disposition: HOME / SELF CARE / HOMELESS Impression: Primary Impression: Low back pain Qualified Codes: M54.50 - Low back pain, unspecified Additional Instructions: Your symptoms are consistent with back spasms secondary to your recent injury. Based on the injury pattern you described imaging is not indicated. Try the medications I prescribed you and return if you develop any fever , bowel or bladder dysfunction, weakness numbness or tingling or worsening pain Referrals: NO PRIMARY CARE PROVIDER (PCP) Prescriptions Lidocaine (Lidocaine Pain Relief) 4 % Adh..patch 1 PATCH TOP DAILY for 10 Days, #10 PATCH 0 Refills Prov: ANA MARÍA SAEED MD 12/22/24 Methocarbamol (Methocarbamol) 500 Mg Tablet 3 TAB PO Q8H for 30 Days, #90 TAB 0 Refills Prov: ANA MARÍA SAEED MD 12/22/24 Methylprednisolone (Medrol Dosepak) 4 Mg Tab.ds.pk 0 PO UD, #21 TAB 0 Refills take 6 Pills Day 1, 5 Pills Day 2, 4 Pills Day 3, 3 Pills Day 4, 2 Pills Day 5 and 1 pill Day 6 Prov: ANA MARÍA SAEED MD 12/22/24 Signature Scribe Signature: None Attestation: None ANA MARÍA SAEED MD Dec 22, 2024 07:14
[2024-12-22] MEDS ORDERED: METH4TAB81 PO (07:15)
[2024-12-22] MEDS ORDERED: LIDO1ADH67 TOP (07:15)
[2024-12-22] MEDS ORDERED: METH-797 PO (07:15)
[2024-12-22] MEDS: ketorolac trometh 30MG/ML vial 30 MG/ML VIAL IM ONE (07:16)
[2024-12-22 07:41] VITALS: BP 132/66; PULSE 84; RESP 16; O2SAT 98
== END 2024-12-22 07:42 | disposition home or self-care (01) ==
LOC: ER 04:56
DX: M54.50 Low back pain, unspecified (principal); F31.9 Bipolar disorder, unspecified; J45.909 Unspecified asthma, uncomplicated; F15.90 Other stimulant use, unspecified, uncomplicated; F10.90 Alcohol use, unspecified, uncomplicated; Z88.0 Allergy status to penicillin; Z90.721 Acquired absence of ovaries, unilateral; Z91.040 Latex allergy status; Z98.51 Tubal ligation status; Y90.9 Presence of alcohol in blood, level not specified
CPT/HCPCS: 96372; 99283; J1885